=== PATIENT | male | born 1980 | race African-American/Black ===

== ENCOUNTER 2023-01-02 10:26 | Emergency (ER) | payer MEDICAID ==
[~2023-01-02] VITALS: Ht 188 cm; Wt 91.0 kg
[2023-01-02 10:49] VITALS: BP 147/81; PULSE 101; RESP 18; TEMP 98.6
[2023-01-02] MEDS ORDERED: DOXYCYCLINE HYCLATE 100MG CAPSULE PO SCH (12:00)
[2023-01-02] MEDS ORDERED: CEFTRIAXONE SODIUM 500 MG/VIAL IM SCH (12:00)
[2023-01-02] MEDS ORDERED: DOXY100T2 MT (13:01)
[2023-01-02 14:40] LABS: CLARITY URINE CLOUDY (CLEAR); COLOR URINE YELLOW (YELLOW); KETONES URINE TRACE (NEGATIVE); LEUKOCYTE ESTERASE URINE TRACE (NEGATIVE); NITRITE URINE NEGATIVE (NEGATIVE); OCCULT BLOOD URINE NEGATIVE (NEGATIVE); PH URINE 6.5 (4.5-8.0); PROTEIN URINE TRACE (NEGATIVE); SPECIFIC GRAVITY URINE 1.031 (1.005-1.030)
[2023-01-05 04:12] LABS: NEISSERIA GONORRHOEAE NAA Negative (Negative)
== END 2023-01-02 13:46 | disposition home or self-care (01) ==
LOC: ER 10:52
DX: A64 Unspecified sexually transmitted disease (principal)
CPT/HCPCS: 81003; 87491; 87591; 96372; 99283; J0696; Z7610